=== PATIENT | female | born 1955 | race Caucasian/White ===

== ENCOUNTER 2023-08-01 15:54 | Emergency (ER) | payer MEDICARE | END 2023-08-01 18:30 | disposition home or self-care (01) | LOC: CSHERS 15:54 | DX: M79.81 Nontraumatic hematoma of soft tissue (principal); E11.9 Type 2 diabetes mellitus without complications; I10 Essential (primary) hypertension ==

== ENCOUNTER 2024-02-13 13:06 | Outpatient (CLI) | payer MEDICARE | END 2024-02-13 13:07 | disposition home or self-care (01) | LOC: CSHMAMMO 13:06 | PROVIDERS: ATTEND Physician Assistant | DX: Z78.0 Asymptomatic menopausal state (principal) | CPT/HCPCS: 77080 ==